=== PATIENT | female | born 2005 | race Caucasian/White ===

== ENCOUNTER 2025-02-03 13:51 | Outpatient (CLI) | payer MEDICAID, SELFPAY ==
[2025-02-03 17:46] LABS: Syphilis IgG/IgM Antibody Negative (Negative)
[2025-02-03 18:00] LABS: HIV 1/2 Ab P24 Ag Result Negative (Negative)
[2025-02-03 22:07] LABS: Hepatitis B Surface Antigen Negative (Negative)
[2025-02-03 22:13] LABS: HAV RESULT Negative (Negative); Hepatitis B Core IgM Result Negative (Negative)
[2025-02-03 22:25] LABS: Hepatitis C Virus Antibody Negative (Negative)
== END 2025-02-03 13:52 | disposition home or self-care (01) ==
PROVIDERS: PCP Pediatrics Adolescent Medicine; Visit Provider Student in an Organized Health Care Education/Training Program
DX: Z20.2 Contact with and (suspected) exposure to infections with a predominantly sexual mode of transmission (principal)
CPT/HCPCS: 36415; 80074; 86593; 86695; 86696; 86703; G0432